=== PATIENT | male | born 1970 | race Caucasian/White ===

== ENCOUNTER 2019-11-20 20:00 | Observation (INO) | payer OTHER ==
[~2019-11-20] VITALS: Ht 162.6 cm; Wt 59.0 kg
[~2019-11-20 20:00] MED LIST: FURO-570 PO; SPIR50TA PO
[2019-11-20 20:08] VITALS: BP 80/48
[2019-11-20] MEDS ORDERED: ACETAMINOPHEN 325 MG TAB PO ONE (20:50)
[2019-11-20 20:55] LABS: BASOPHILS # (AUTO) 0.1 K/uL (0.00-0.22); BASOPHILS % (AUTO) 2.4 % (0.0-2.0); EOSINOPHILS # (AUTO) 0.1 K/uL (0-0.4); EOSINOPHILS % (AUTO) 1.8 % (0.0-4.0); HEMATOCRIT 27.3 % (36-52); HEMOGLOBIN 8.9 g/dL (12.0-18.0); LYMPHOCYTES # (AUTO) 0.8 K/uL (2.0-11.5); LYMPHOCYTES % (AUTO) 19.2 % (20.5-51.1); MEAN CORPUSCULAR HEMOGLOBIN 33 pg (27-31); MEAN CORPUSCULAR HGB CONC 33 g/dL (33-37); MEAN CORPUSCULAR VOLUME 99.9 fL (80-94); MONOCYTES # (AUTO) 0.4 K/uL (0.8-1.0); MONOCYTES % (AUTO) 11.4 % (1.7-9.3); NEUTROPHILS # (AUTO) 2.6 K/uL (1.8-7.7); NEUTROPHILS % (AUTO) 65.2 % (42.2-75.2); PLATELET COUNT (AUTO) 166 K/uL (140-450); RED BLOOD CELL COUNT(AUTO) 2.73 MIL/uL (4.20-6.10); RED CELL DISTRIBUTION WIDTH 18.4 % (11.6-13.7); WHITE BLOOD COUNT (AUTO) 3.9 K/uL (4.8-10.8)
[2019-11-20] MEDS ORDERED: ACETAMINOPHEN 325 MG TAB ONE (20:56)
[2019-11-20] MEDS ORDERED: FAMOTIDINE 20 MG/2 ML VIAL IVP ONE (21:05)
[2019-11-20 21:09] LABS: ALBUMIN 2.3 g/dL (3.4-5.0); ANION GAP 10.5 (8-16); POTASSIUM 3.5 mmol/L (3.5-5.1); TOTAL BILIRUBIN 0.7 mg/dL (0.0-1.0)
[2019-11-20 21:12] LABS: CREATININE 5.4 mg/dL (0.6-1.3)
[2019-11-20] MEDS ORDERED: MORPHINE SULFATE 4 MG/ML SYR IVP ONE (22:20)
[2019-11-20] MEDS ORDERED: POTASSIUM CHLORIDE 10 MEQ TABER PO PRN (23:00)
[2019-11-20] MEDS ORDERED: ZOLPIDEM 5 MG TAB PO PRN (23:00)
[2019-11-20] MEDS ORDERED: ACETAMINOPHEN 325 MG TAB PO PRN (23:00)
[2019-11-20] MEDS ORDERED: DOCUSATE SODIUM 250 MG GELCAP PO PRN (23:00)
[2019-11-20] MEDS ORDERED: MAGNESIUM OXIDE 400 MG TAB PO PRN (23:00)
[2019-11-20] MEDS ORDERED: ACETAMINOPHEN 650 MG SUPP RC PRN (23:00)
[2019-11-20] MEDS ORDERED: ONDANSETRON 4 MG/2 ML VIAL IVP PRN (23:00)
[2019-11-20] MEDS ORDERED: MAG SULF 2000 MG/WATER PREMIX 50 ML IV PRN (23:00)
[2019-11-20] MEDS ORDERED: LACT10SO1 PO (23:37)
[2019-11-21] VITALS: BP 91/51
[2019-11-21 04:00] VITALS: BP 102/61
[2019-11-21] MEDS ORDERED: MIDODRINE 5 MG TAB PO SCH (07:00)
[2019-11-21 08:00] VITALS: BP 100/57
[2019-11-21 08:43] LABS: HEMATOCRIT 31.1 % (36-52); HEMOGLOBIN 10.1 g/dL (12.0-18.0); MEAN CORPUSCULAR HEMOGLOBIN 31 pg (27-31); MEAN CORPUSCULAR HGB CONC 33 g/dL (33-37); PLATELET COUNT (AUTO) 123 K/uL (140-450); RED BLOOD CELL COUNT(AUTO) 3.24 MIL/uL (4.20-6.10); RED CELL DISTRIBUTION WIDTH 20.6 % (11.6-13.7); WHITE BLOOD COUNT (AUTO) 3.1 K/uL (4.8-10.8)
[2019-11-21 09:44] LABS: LYMPHOCYTES % (MANUAL) 10 % (20-46); MONOCYTES % (MANUAL) 8 % (5-12)
[2019-11-21 10:54] VITALS: BP 100/57
[2019-11-21 11:43] LABS: ANION GAP 15.4 (8-16); CARBON DIOXIDE 25.8 mmol/L (21-32); POTASSIUM 4.2 mmol/L (3.5-5.1)
[2019-11-21 11:45] LABS: CREATININE 6.2 mg/dL (0.6-1.3)
== END 2019-11-21 12:00 | disposition home or self-care (01) ==
LOC: MED 20:00 → MTU 22:59
PROVIDERS: ADMIT Internal Medicine Pulmonary Disease; ATTEND Internal Medicine Pulmonary Disease
DX: I95.1 Orthostatic hypotension (principal); D63.8 Anemia in other chronic diseases classified elsewhere; E11.22 Type 2 diabetes mellitus with diabetic chronic kidney disease; I12.0 Hypertensive chronic kidney disease with stage 5 chronic kidney disease or end stage renal disease; N18.6 End stage renal disease; K92.2 Gastrointestinal hemorrhage, unspecified; K70.30 Alcoholic cirrhosis of liver without ascites; Z87.11 Personal history of peptic ulcer disease; Z99.2 Dependence on renal dialysis; Z79.899 Other long term (current) drug therapy
CPT/HCPCS: 36415; 36430; 71045; 80048; 80053; 83605; 83735; 85025; 85610; 85730; 86886; 86900; 86901; 86920; 87081; 93005; 96374; 96375; 99291; G0378; J2270; J3490; J7030; P9016; Q0092; 96372; 99285

== ENCOUNTER 2019-12-04 17:13 | Emergency (ER) | payer OTHER ==
[~2019-12-04] VITALS: Ht 162.6 cm; Wt 68.0 kg
[~2019-12-04 17:13] MED LIST changes: +LACT10SO1 PO
[2019-12-04 18:02] VITALS: BP 157/86
[2019-12-04] MEDS ORDERED: ALBUTEROL HFA MDI 90 MCG/ACTUATION 8 GM INH ONE (18:50)
[2019-12-04 19:29] LABS: BASOPHILS # (AUTO) 0.1 K/uL (0.00-0.22); BASOPHILS % (AUTO) 1.3 % (0.0-2.0); EOSINOPHILS # (AUTO) 0.1 K/uL (0-0.4); EOSINOPHILS % (AUTO) 1.8 % (0.0-4.0); HEMATOCRIT 27.6 % (36-52); HEMOGLOBIN 9.1 g/dL (12.0-18.0); LYMPHOCYTES # (AUTO) 0.6 K/uL (2.0-11.5); LYMPHOCYTES % (AUTO) 9.3 % (20.5-51.1); MEAN CORPUSCULAR HEMOGLOBIN 32 pg (27-31); MEAN CORPUSCULAR HGB CONC 33 g/dL (33-37); MEAN CORPUSCULAR VOLUME 97.5 fL (80-94); MONOCYTES # (AUTO) 0.6 K/uL (0.8-1.0); MONOCYTES % (AUTO) 9.4 % (1.7-9.3); NEUTROPHILS # (AUTO) 4.7 K/uL (1.8-7.7); NEUTROPHILS % (AUTO) 78.2 % (42.2-75.2); PLATELET COUNT (AUTO) 126 K/uL (140-450); RED BLOOD CELL COUNT(AUTO) 2.83 MIL/uL (4.20-6.10); RED CELL DISTRIBUTION WIDTH 19.6 % (11.6-13.7); WHITE BLOOD COUNT (AUTO) 6.1 K/uL (4.8-10.8)
[2019-12-04 19:38] LABS: ANION GAP 16.5 (8-16); CARBON DIOXIDE 26.4 mmol/L (21-32); POTASSIUM 4.9 mmol/L (3.5-5.1)
[2019-12-04] MEDS ORDERED: LEVOFLOXACIN 750 MG/D5W PREMIX 150 ML IV ONE (20:25)
[2019-12-04] MEDS ORDERED: cefTRIAXone 2,000 MG in DEXTROSE 5% 100 ML IV ONE (20:25)
[2019-12-04] MEDS ORDERED: cefTRIAXone 2,000 MG VIAL ONE (20:28)
[2019-12-04 23:04] VITALS: BP 179/85
== END 2019-12-04 23:03 | disposition home or self-care (01) ==
LOC: MED 17:13
DX: R05 Cough (principal); R50.9 Fever, unspecified; I12.0 Hypertensive chronic kidney disease with stage 5 chronic kidney disease or end stage renal disease; N18.6 End stage renal disease; Z99.2 Dependence on renal dialysis
CPT/HCPCS: 36415; 71045; 80048; 85025; 87040; 87804; 94640; 96365; 96368; 99284; J0696; J1956; J3535; Q0092

== ENCOUNTER 2020-03-12 09:11 | Observation (INO) | payer OTHER ==
[~2020-03-12] VITALS: Ht 162.6 cm; Wt 58.5 kg
[2020-03-12 09:21] VITALS: BP 145/95
--- NOTE | 2020-03-12 09:26 | NUR ---
Patient ambulated to bed 7. RN evaluating patient at bedside.
--- NOTE | 2020-03-12 09:29 | NUR ---
Dr. Banks is evaluating the patient at bedside.
--- NOTE | 2020-03-12 09:31 | NUR ---
49 yo male c/o general weakness, confusion, and insomnia since last night. pt does have diaylsis MWF. [facility]. full clear speech, ambulatory with steady gait, equal marine technician to both upper extremities, no facial asymmetry noted at this time hx--esrd dialysis (w, th, f), htn
[2020-03-12] MEDS ORDERED: NACL 0.9% 500 ML IV SCH (09:37)
--- NOTE | 2020-03-12 09:43 | NUR ---
EKG completed by EMT at bedside.
--- NOTE | 2020-03-12 09:45 | NUR ---
PT CELL PHONE NUMBER IS [phone]
--- NOTE | 2020-03-12 09:54 | NUR ---
pharmacy tech customer service at bedside.
[2020-03-12 10:10] LABS: HEMATOCRIT 42.6 % (36-52); RED BLOOD CELL COUNT(AUTO) 4.26 MIL/uL (4.20-6.10); RED CELL DISTRIBUTION WIDTH 16.6 % (11.6-13.7)
[2020-03-12 10:13] LABS: HEMOGLOBIN 14.2 g/dL (12.0-18.0); MEAN CORPUSCULAR HEMOGLOBIN 33 pg (27-31); MEAN CORPUSCULAR HGB CONC 33 g/dL (33-37); MEAN CORPUSCULAR VOLUME 99.9 fL (80-94); PLATELET COUNT (AUTO) 92 K/uL (140-450)
[2020-03-12 10:18] LABS: WHITE BLOOD COUNT (AUTO) 1.8 K/uL (4.8-10.8)
[2020-03-12 10:23] LABS: ALBUMIN 2.7 g/dL (3.4-5.0); ANION GAP 20.9 (8-16); CARBON DIOXIDE 24.8 mmol/L (21-32); POTASSIUM 3.7 mmol/L (3.5-5.1); TOTAL BILIRUBIN 1.6 mg/dL (0.0-1.0)
[2020-03-12 10:28] LABS: CREATININE 6.9 mg/dL (0.6-1.3)
[2020-03-12] MEDS ORDERED: ASPIRIN 81 MG TAB.CHEW PO ONE (10:50)
[2020-03-12 11:12] LABS: BASOPHILS % (MANUAL) 1 % (0-2); EOSINOPHILS % (MANUAL) 1 % (0-4); LYMPHOCYTES % (MANUAL) 18 % (20-46); MONOCYTES % (MANUAL) 14 % (5-12)
--- NOTE | 2020-03-12 11:13 | NUR ---
PT PULLED OUT IV ON RIGHT ARM. STARTED 20G IV ON RIGHT WRIST.
[2020-03-12] MEDS ORDERED: diphenhydrAMINE 50 MG/ML VIAL IVP ONE (11:20)
--- NOTE | 2020-03-12 11:27 | NUR ---
PT INSURANCE COMPANY CALLED TO INQUIRE ABOUT PT FOR POSSIBLE TRANSFER.
--- NOTE | 2020-03-12 12:39 | NUR ---
PT PROVIDED WITH WATER AT THIS TIME. PT INSTRUCTED TO NOT GET OUT OF BED AND TO UTILIZE CALL LIGHT TO CALL FOR ASSISTANCE.
[2020-03-12] MEDS ORDERED: ONDANSETRON 4 MG/2 ML VIAL IVP PRN (13:25)
[2020-03-12] MEDS ORDERED: HYDROcodone/APAP 5/325 MG 1 TAB TAB PO PRN (13:25)
[2020-03-12] MEDS ORDERED: ACETAMINOPHEN 325 MG TAB PO PRN (13:25)
--- NOTE | 2020-03-12 13:46 | NUR ---
Dr. Álvarez is evaluating the patient at bedside.
[2020-03-12] MEDS: MORPHINE SULFATE 4 MG/ML SYR IVP PRN ×2 (14:09→21:09)
--- NOTE | 2020-03-12 14:10 | NUR ---
pt stated 10/10 pain in his feet.
--- NOTE | 2020-03-12 17:46 | NUR ---
PT RECEIVED MEAL TRAY
--- NOTE | 2020-03-12 19:15 | NUR ---
REPORT RECEIVED FROM ALAN HELTON FOR CONTINUATION OF CARE.
--- NOTE | 2020-03-12 19:25 | NUR ---
PT RESTING IN BED, LOCKED AND IN LOWEST POSITION, AROUSABLE BY VERBAL STIMULATION, HOB ELEVATED, SIDE RAILS X2 FOR PT SAFETY . PT BREATHING EVEN AND UNLABORED. VSS.
--- NOTE | 2020-03-12 20:43 | NUR ---
ATTEMPTED TO CALL DR. CHERY TO REPORT CRITICAL LAB VALUE OF TROPONIN 0.015, NO ANSWER. WILL TRY AGAIN.
[2020-03-12] MEDS: METOPROLOL 25 MG TAB PO SCH (21:00)
--- NOTE | 2020-03-12 21:00 | NUR ---
pt c/o of pain 04/18 , requested pain medication for relief.
--- NOTE | 2020-03-12 21:09 | NUR ---
IV FLUSHED 10 CC NS , IV PATENT , NO SWELLING, REDNESS OR INFILTRATION NOTED. PT MEDICATED FOR 8/10 FEET PAIN W/ MORPHINE 4MG IVP.
--- NOTE | 2020-03-12 21:55 | NUR ---
Patient will be admitted to care of DR. RICHMOND. Admited to TELEMETRY. Will go to room 104B. Belongings list completed. Report to ALAN BRAND.
--- NOTE | 2020-03-12 22:30 | NUR ---
RECEIVED PATIENT FROM ER WITH A DX OF GENERALIZE WEAKNESS PATIENT ALERT AND ORIENTED X 4 NO S/S OF RESP DISTRESS NOTED, NO COMPLAIN OF PAIN . ABLE TO MAKE NEEDS KNOWN . PT HAS A HX OF ESRD HEMODIALYSIS M-- . DIALYSIS CATH RIGHT CHEST , OLD AV SHUNT KAYLEE NOT WORKING. AMBULATORY ,SKIN IS INTACT. ORIENTED TO THE UNIT. NEW ORDER TO HAVE DIALYSIS, NOTIFIED ALFREDO, STATED WILL HAVE DIALYSIS TONIGHT . WILL CONTINUE TO MONITOR.
[2020-03-12 23:11] VITALS: BP 125/94
--- NOTE | 2020-03-12 23:35 | NUR ---
C/O BACK PAIN MEDICATED WITH NORCO ONE TAB ,DIALYSIS NURSE AT THE BED SIDE TO START DIALYSIS WILL CONTINUE TO MONITOR
[2020-03-13] MEDS: MORPHINE SULFATE 4 MG/ML SYR IVP PRN (02:28)
--- NOTE | 2020-03-13 02:40 | NUR ---
COMPLETED HEMODIALYSIS OUTPUT IS 2400 , COMPLAIN OF GENERALIZE PAIN MEDICATED WITH MORPHINE 4MG IVP . VITALS STABLE WILL CONTINUE TO MONITOR.
[2020-03-13 04:28] VITALS: BP 128/75
[2020-03-13 06:42] LABS: HEMOGLOBIN 14.2 g/dL (12.0-18.0); MEAN CORPUSCULAR HEMOGLOBIN 33 pg (27-31); MEAN CORPUSCULAR HGB CONC 33 g/dL (33-37); MEAN CORPUSCULAR VOLUME 100.5 fL (80-94); PLATELET COUNT (AUTO) 93 K/uL (140-450); RED BLOOD CELL COUNT(AUTO) 4.28 MIL/uL (4.20-6.10); RED CELL DISTRIBUTION WIDTH 17.1 % (11.6-13.7); WHITE BLOOD COUNT (AUTO) 2.1 K/uL (4.8-10.8)
[2020-03-13 07:23] LABS: ANION GAP 16.2 (8-16); CARBON DIOXIDE 26.7 mmol/L (21-32); POTASSIUM 3.9 mmol/L (3.5-5.1)
[2020-03-13 07:39] LABS: CREATININE 5.1 mg/dL (0.6-1.3)
[2020-03-13 07:40] LABS: MAGNESIUM 2.3 mg/dL (1.8-2.4); PHOSPHORUS 6.8 mg/dL (2.5-4.9)
[2020-03-13 07:48] LABS: BASOPHILS % (MANUAL) 0 % (0-2); EOSINOPHILS % (MANUAL) 1 % (0-4); LYMPHOCYTES % (MANUAL) 33 % (20-46); MONOCYTES % (MANUAL) 12 % (5-12)
[2020-03-13 08:00] VITALS: BP 145/81
[2020-03-13] MEDS ORDERED: LACTULOSE 20 GM/30 ML UDC PO SCH (09:00)
[2020-03-13] MEDS ORDERED: NON-FORMULARY ITEM (Lactulose 30 ML) PO SCH (09:00)
[2020-03-13] MEDS ORDERED: FUROSEMIDE 40 MG TAB PO SCH (09:00)
[2020-03-13] MEDS ORDERED: ASPIRIN 81 MG TAB.CHEW PO SCH (09:00)
--- NOTE | 2020-03-13 09:00 | NUR ---
RECEIVED BEDSIDE SHFIT REPORT FROM FOREST MANAGER NURSE FOR CONTINUATION OF CARE.
[2020-03-13] MEDS: METOPROLOL 25 MG TAB PO SCH (09:28)
[2020-03-13] MEDS ORDERED: SPIR50TA PO (11:36)
[2020-03-13] MEDS ORDERED: METO25TA PO (11:37)
--- NOTE | 2020-03-13 12:35 | NUR ---
DC PAPERWORK SIGNED, FOLLOW UP EDUCATION PROVIDED, VERBALIZED UNDERSTANDING, PATIENTS BELONGINGS ACCOUNTED FOR. IV REMOVED, HOSPITAL BAND REMOVED. PATIENTS SPOUSE PICKED UP PATIENT FROM HOSPITAL. SAFELY DISCHARGED
[2020-03-14] MEDS ORDERED: SPIRONOLACTONE 50 MG TAB PO SCH (09:00)
--- NOTE | 2020-03-15 11:40 | NUR ---
DISCHARGE PLANNING: ORDER FOR FOLLOW UP VISIT WITH PCP AND SYSTEMS ACCOUNTANT - DR KENNY IN 2-3 WEEKS SENT TO [facility] AT [phone]. BO OLIVAS OF [facility] MADE AWARE.
== END 2020-03-13 12:55 | disposition home or self-care (01) ==
LOC: MED 09:11 → MTU 13:22 → INTOOBSV 13:22
PROVIDERS: ADMIT Internal Medicine Pulmonary Disease; ATTEND Internal Medicine Pulmonary Disease
DX: E87.70 Fluid overload, unspecified (principal); I21.A1 Myocardial infarction type 2; R41.0 Disorientation, unspecified; E83.52 Hypercalcemia; I12.0 Hypertensive chronic kidney disease with stage 5 chronic kidney disease or end stage renal disease; N18.6 End stage renal disease; D63.1 Anemia in chronic kidney disease; E72.4 Disorders of ornithine metabolism; K70.30 Alcoholic cirrhosis of liver without ascites; D69.59 Other secondary thrombocytopenia; F41.9 Anxiety disorder, unspecified; G47.00 Insomnia, unspecified; D72.819 Decreased white blood cell count, unspecified; I24.9 Acute ischemic heart disease, unspecified; Z87.19 Personal history of other diseases of the digestive system; Z99.2 Dependence on renal dialysis; Z79.899 Other long term (current) drug therapy
CPT/HCPCS: 36415; 71045; 80048; 80053; 82140; 83036; 83605; 83735; 83880; 84100; 84484; 85025; 85610; 85730; 87081; 93005; 96361; 96374; 96375; 96376; 99285; G0378; J1200; J1644; J2270; J2405; Q0092